=== PATIENT | female | born 1990 | race Caucasian/White ===

== ENCOUNTER 2019-07-13 20:24 | Observation (INO) ==
[2019-07-13 21:11] LABS: Bilirubin,Urine Negative (Negative); Blood,Urine Negative (Negative); Clarity,Urine Cloudy (Clear); Color,Urine Yellow (Yellow); Glucose,Urine (UA) Normal (Normal); Ketones,Urine Negative (Negative); Leukocyte Esterase,Urine Negative (Negative); Nitrite,Urine Negative (Negative); Protein,Urine Negative (Neg-Trace); Specific Gravity,Urine 1.015 (1.010-1.025); Urobilinogen,Urine Normal (Normal)
[2019-07-13 21:12] LABS: Bacteria,Urine None Seen per hpf (None-Few); Hyaline Casts,Urine None Seen per lpf (None-Few); RBC,Urine 0-3 per hpf (0-3); Squamous Epithelial Cell,Urine Many per lpf (None-Few); WBC,Urine 0-3 per hpf (0-3)
[2019-07-13 21:20] LABS: Amphetamine Screen,Urine Negative ng/mL (Cutoff=1000); Barbiturate Screen,Urine Negative ng/mL (Cutoff=200); Benzodiazepines Screen,Urine Negative ng/mL (Cutoff=200); Cannabinoid Screen,Urine Negative ng/mL (Cutoff = 50); Cocaine Screen,Urine Negative ng/mL (Cutoff= 300); Opiate Screen,Urine Negative ng/mL (Cutoff=300); Phencyclidine Screen,Urine Negative ng/mL (Cutoff=25)
--- NOTE | 2019-07-13 22:13 | OB/GYN Progress Note ---
Date of Encounter: 07/13/19 Time of Encounter: 22:11 - Assessment and Plan (1) 36 weeks gestation of Current Visit: No Status: Chronic admitted for observation Subjective - Subjective Principal diagnosis: leaking fluid Interval history: Patient is a 28 y/o @ 36w4d presents to labor and delivery with complaints of leaking fluid. Patient denies VB or regular contractions. She does reports low back and abdominal pain and good movement. Patient does report the leaking started after having intercourse earlier today. Patient denies any urin curt symptoms. Antepartum ROS: loss of fluid, movement normal, no vaginal bleeding Objective - Exam FHR: auscultation normal FHR comments: 125 bpm moderate variability Auscultation: bilateral: normal Abdomen: Present: normal appearance, soft, gravid Cervical dilation: 1.5 Cervix effacement: 70 station: -3 Comments: speculum exam: Small amount of white discharge noted. No blood or pooling noted. Nitrazine and fern Negative - Labs Labs: Abnormal lab results Urine Clarity Cloudy (Clear) A 07/13/19 20:55 Ur Squamous Epith Cells Many per lpf (None-Few) H 07/13/19 20:55
--- NOTE | 2019-07-13 22:38 | Discharge Summary ---
Date of Encounter: 07/13/19 Time of Encounter: 22:37 - Discharge Diagnosis (1) 36 weeks gestation of Priority: Primary Status: Chronic (2) NST (non-stress test) reactive on surveillance Priority: Secondary Status: Acute Comments: FHR 135 bpm moderate variability +15x15 accels no decels noted. Cat. 1 tracing - Discharge Medications Prescriptions: No Action Tizanidine HCl [Zanaflex] 4 mg PO HS Acetaminophen [Tylenol] 325 mg PO Q6HR PRN PRN Reason: Pain Norethindrone-Ethinyl Estrad [Pirmella 7-7-28 Tablet] 1 tab PO DAILY Ibuprofen 800 mg PO TID PRN PRN Reason: Pain Methimazole [Tapazole] 10 mg PO BID OxyCODONE/APAP 5/325 [Percocet 5/325 MG] 1 each PO Q6HR PRN #20 tablet PRN Reason: Pain Bisacodyl [Dulcolax] 5 mg PO DAILY #20 tablet Home Medications: Acetaminophen [Tylenol] 325 mg PO Q6HR PRN 07/17/17 [History] Ibuprofen 800 mg PO TID PRN 07/17/17 [History] Methimazole [Tapazole] 10 mg PO BID 07/17/17 [History] Norethindrone-Ethinyl Estrad [Pirmella 77-28 Tablet] 1 tab PO DAILY 07/17/17 [History] OxyCODONE/APAP 5/325 [Percocet 5/325 MG] 1 each PO Q6HR PRN #20 tablet 07/17/17 [Rx] Tizanidine HCl [Zanaflex] 4 mg PO HS 07/17/17 [History] Bisacodyl [Dulcolax] 5 mg PO DAILY #20 tablet 07/22/17 [Rx] Allergies/Adverse Reactions: Allergy/AdvReac Type Severity Reaction Status Date / Time adhesive tape AdvReac Rash Verified 07/17/17 06:43 Data Procedures and tests throughout hospitalization: Laboratory Tests 07/13/19 07/13/19 20:55 20:55 Urine Color Yellow Urine Clarity Cloudy A Urine pH 7.0 Ur Specific [place] 1.015 Urine Protein Negative Urine Glucose (UA) Normal Urine Ketones Negative Urine Blood Negative Urine Nitrite Negative Urine Bilirubin Negative Urine Urobilinogen Normal Ur Leukocyte Esterase Negative Urine Microscopic RBC 0-3 Urine Microscopic WBC 0-3 Ur Squamous Epith Cells Many H Urine Bacteria None Seen Hyaline Casts None Seen Ur Culture Indicated? NO Urine Opiates Screen Negative Ur Buprenorphine Scrn Negative Ur Barbiturates Screen Negative Ur Phencyclidine Scrn Negative Ur Amphetamines Screen Negative U Benzodiazepines Scrn Negative Urine Cocaine Screen Negative U Marijuana (THC) Screen Negative Ur Drug Screen Interp See Below Labs on day of discharge: Labs from last 24 hours 07/13/19 07/13/19 20:55 20:55 Urine Color Yellow Urine Clarity Cloudy A Urine pH 7.0 Ur Specific [place] 1.015 Urine Protein Negative Urine Glucose (UA) Normal Urine Ketones Negative Urine Blood Negative Urine Nitrite Negative Urine Bilirubin Negative Urine Urobilinogen Normal Ur Leukocyte Esterase Negative Urine Microscopic RBC 0-3 Urine Microscopic WBC 0-3 Ur Squamous Epith Cells Many H Urine Bacteria None Seen Hyaline Casts None Seen Ur Culture Indicated? NO Urine Opiates Screen Negative Ur Buprenorphine Scrn Negative Ur Barbiturates Screen Negative Ur Phencyclidine Scrn Negative Ur Amphetamines Screen Negative U Benzodiazepines Scrn Negative Urine Cocaine Screen Negative U Marijuana (THC) Screen Negative Ur Drug Screen Interp See Below Date of admission: 07/13/19 20:24 Discharging clinician: Agnieszka Rosas Anticipated date of discharge: 07/13/19 - Patient Status Disposition: Home, Self-Care Condition: Good Functional capacity at discharge: independent ambulation - Discharge Instructions Follow Up With: Agnieszka Rosas CNM [Non-Partnered Physician] - - Diet and Activity Activity: increase activity as tolerated Diet: diabetic diet Hospital Course [facility] Time Attestation: Total time spent providing and/or coordinating discharge services: Time Spent: Less than 30 minutes - VTE Reasons for not Prescribing Prophylaxis: Treatment not Indicated - Low risk for VTE
== END 2019-07-13 22:47 | disposition home or self-care (01) ==
LOC: 1NENULAB
PROVIDERS: ADMIT Advanced Practice Midwife; ATTEND Advanced Practice Midwife

== ENCOUNTER 2019-07-29 17:36 | Observation (INO) ==
[2019-07-29] MEDS ORDERED: Ringers Solution, Lactated 1,000 ML ONE (18:13)
[2019-07-29 18:23] LABS: Basophils % 0.3 %; Eosinophils # 0.1 K/mcL (0.0-0.6); Eosinophils % 0.6 %; Hematocrit 36.3 % (35.3-44.9); Hemoglobin 11.6 g/dL (11.5-15.4); Lymphocytes # 1.4 K/mcL (0.6-4.6); Lymphocytes % 14.5 %; Mean Corpuscular Hemoglobin 24.8 pg (28.0-33.3); Mean Corpuscular Volume 77.7 fL (83.0-100.0); Mean Platelet Volume 10.2 fL (9.4-12.4); Monocytes # 0.7 K/mcL (0.0-1.3); Monocytes % 6.9 %; Neutrophils # 7.5 K/mcL (1.6-8.9); Platelet Count 312 K/mcL (140-400); Red Blood Count 4.67 M/mcL (3.82-4.97); Red Cell Distribution Width 15.9 % (11.5-14.5); Segmented Neutrophils % 76.7 %; White Blood Count 9.8 K/mcL (4.3-11.1)
--- NOTE | 2019-07-29 18:45 | OB/GYN History & Physical ---
Date of Encounter: 07/29/19 Time of Encounter: 18:30 Assessment and Plan (1) NST (non-stress test) reactive Current visit: Yes Status: Acute Bpm 110 with moderate variability and 15 x 15 accels, no decelerations category 1 tracing (2) 38 weeks gestation of Current visit: Yes Status: Acute Under the care of Dr. Whelan and the [facility] (3) Prior complicated by PIH, antepartum Current visit: Yes Status: Acute Patient initially had elevated blood pressures upon arrival, and right upper quadrant pain we will order preeclampsia labs and continue to monitor her blood pressure. Given her history, the presentation is somewhat concerning. History of Present Illness Chief complaint: Labor Evaluation HPI: Ms. Capps is a 28 year old female , at 38 weeks, 6 days presenting with contractions, and abdominal pain and the urge to push. Patient endorses movement, and irregular contractions. She denies bloody show, denies fluid gush. She denies a history of UTI or STI during this . She denies alc ohol, tobacco, illicit drugs during this . Previous pregnancies were complicated by preeclampsia. #1, she was diagnosed with preeclampsia and required magnesium, #2 she was diagnosed with PIH. During this , she has been on an aspirin regimen. Patient follows at [facility] with the midwives and Dr. Whelan. GBS negative O+ Hepatitis B nonreactive RPR nonreactive Rubella immune Past Med Surg Social Fam HX - Past Medical History Attestation: Yes The following information was validated with the patient. Medical history: thyroid disease Additional medical history: cardiac arrhythmia,anemia, supervision of other normal , large for gestatioinal age fetus affecting mother,antepartum, third trimester,single gestation, 38 weeks gestation of ,elevated LDL cholesterol level, prediabetes,thyroid nodule,SVT Psychiatric history: no psych history - Past Surgical History Surgical History: cholecystectomy, other Additional surgical history: d&C, cyst removed from head, T&A - Social History Smoking Status: 2nd Hand Smoke Exposure Smokeless Tobacco Status: No Alcohol use: none Drug use: none - Family History Grandmother Living Status: Still Living Hx Family Cardiac Disorders: Yes (MA, high blood pressure) Hx Family Endocrine Disorder: Yes (diabetes) Mother Adopted: No Family Member Ethnicity: Non- Living Status: Still Living Hx Family Cardiac Disorders: Yes (DVT) Hx Family Respiratory Disorders: No Hx Family Cancer: No Hx Family GI Disorders: No Hx Family Genitourinary Disorders: No Hx Family Endocrine Disorder: No Hx Family Musculoskeletal Disorders: No Hx Family Neuromuscular Disorders: No Hx Family Neurologic Disorders: No Hx Family HEENT Disorders: No Hx Family Autoimmune Disorders: No Hx Family Reproductive Disorders: No Hx Family Psychosocial Disorders: No Hx Family Medical Disorders: No Obstetrical History - Pregnancies : 4 Para: 2 Term: 2 : 0 Ab's: 1 Livin - History/Complications History/Complications: Preeclampsia requiring magnesium within 1, induced hypertension in 2 Medications and Allergies Aspirin 81 mg PO DAILY 07/13/19 [History] Levothyroxine 137 mcg PO DAILY 07/13/19 [History] One Tablet 1 / PO DAILY 07/13/19 [History] Allergy/AdvReac Type Severity Reaction Status Date / Time adhesive tape AdvReac Rash Verified 07/17/17 06:43 Review of System OB All systems PM: reviewed and no additional remarkable complaints except as stated - Constitutional Constitutional ROS IM: no fatigue, no fever(s), no malaise - Cardiovascular Cardiovascular: no chest pain, no diaphoresis, no dyspnea - Respiratory Respiratory: no dyspnea, no hemoptysis, no dyspnea on exertion - Gastrointestinal Gastrointestinal: abdominal pain, constipation, nausea, other (Right upper quadrant pain), no cramping, no diarrhea, no fecal incontinence, no vomiting - Genitourinary Genitourinary: pelvic pain, no abnormal vaginal bleeding, no dysuria, no flank pain, no hematuria, no urinary incontinence - Neurological Nerological: no dizziness, no headache(s), no loss of vision, no other visual disturbances - Psychiatric Psychiatric: no anxiety, no depression, no irritability Exam - Constitutional Constitutional: well developed, well nourished, average body habitus, mild distress - HEENT HEENT: EOMI, PERRL, Normocephaly, Mucus Membranes Moist - Neck Neck exam: full ROM, supple - Lungs Respiratory exam: CTAB - Cardiovascular Cardiovascular exam: +S1, +S2, tachycardia - Abdomen Abdomen: Present: gravid Abdomen detail: right upper quadrant: mass, left lower quadrant: mass - Extremities Extremities exam: full ROM, normal inspection - Vagina Vagina: Present: normal moisture - Cervix Dilation: 2 Effacement: 0 Station: -4 - Uterus Uterus exam: Present: normal size - Anus/Rectum Anus/Rectum: Present: normal perianal skin Results Result Diagrams: 07/29/19 17:51 Abnormal lab results MCV 77.7 fL (83.0-100.0) L 07/29/19 17:51 MCH 24.8 pg (28.0-33.3) L 07/29/19 17:51 RDW 15.9 % (11.5-14.5) H 07/29/19 17:51 All other labs normal. - VTE Reasons for not Prescribing Prophylaxis: Treatment not Indicated - Low risk for VTE
[2019-07-29 18:52] LABS: Alanine Aminotransferase 7 Units/L (7-52); Aspartate Amino Transferase 20 Units/L (13-39); BUN/Creatinine Ratio 11 (6-26); Blood Urea Nitrogen 5 mg/dL (6-20); Lactate Dehydrogenase 105 Units/L (140-271); Uric Acid 4.9 mg/dL (2.3-7.6); eGFR For African Americans > 60 (> 60); eGFR For Non-African Americans > 60 (> 60)
[2019-07-29 19:57] LABS: Protein/Creatinine Ratio,Urine 0.19 mg/mg (0.00-0.20)
[2019-07-29] MEDS ORDERED: hydrOXYzine pamoate 25 MG CAPSULE PO PRN (21:37)
--- NOTE | 2019-07-29 21:46 | Discharge Summary ---
Date of Encounter: 07/29/19 Time of Encounter: 21:42 - Discharge Diagnosis (1) 38 weeks gestation of Priority: Primary Status: Acute Comments: Admit to observation for complaint of contractions. (2) False labor after 37 weeks of gestation without delivery Priority: Secondary Status: Acute Comments: No cervical change in 4 hours (3) NST (non-stress test) reactive Priority: Secondary Status: Acute Comments: FHR 120 bpm, moderate variability, +15x15 accels, no decels. (4) Prior complicated by PIH, antepartum Priority: Secondary Status: Acute Comments: Patient presented with some symptoms of pre-eclampsia, epigastric pain, elevated blood pressures. Labs completed and returned normal, PC ratio 0.18. Dr. Lo aware and ok to discharge patient - Discharge Medications Prescriptions: No Action One Tablet 1 / PO DAILY Levothyroxine 137 mcg PO DAILY Aspirin 81 mg PO DAILY Home Medications: Aspirin 81 mg PO DAILY 07/13/19 [History] Levothyroxine 137 mcg PO DAILY 07/13/19 [History] One Tablet 1 / PO DAILY 07/13/19 [History] Allergies/Adverse Reactions: Allergy/AdvReac Type Severity Reaction Status Date / Time adhesive tape AdvReac Rash Verified 07/17/17 06:43 Data Procedures and tests throughout hospitalization: Laboratory Tests 07/29/19 07/29/19 07/29/19 17:51 17:58 19:33 WBC 9.8 RBC 4.67 Hgb 11.6 Hct 36.3 MCV 77.7 L MCH 24.8 L MCHC 32.0 RDW 15.9 H Plt Count 312 MPV 10.2 Immature Gran % 1.0 Seg Neutrophils % 76.7 Lymphocytes % 14.5 Monocytes % 6.9 Eosinophils % 0.6 Basophils % 0.3 Neutrophils # 7.5 Lymphocytes # 1.4 Monocytes # 0.7 Eosinophils # 0.1 Basophils # 0.0 BUN 5 L Creatinine 0.47 L Est GFR ( Amer) > 60 Est GFR (Non-Af Amer) > 60 BUN/Creatinine Ratio 11 Uric Acid 4.9 AST 20 ALT 7 Lactate Dehydrogenase 105 L Urine Creatinine 170 Protein/Creatinin Ratio 0.19 Urine Total Protein 33 H Labs on day of discharge: Labs from last 24 hours 07/29/19 07/29/19 07/29/19 19:33 17:58 17:51 WBC 9.8 RBC 4.67 Hgb 11.6 Hct 36.3 MCV 77.7 L MCH 24.8 L MCHC 32.0 RDW 15.9 H Plt Count 312 MPV 10.2 Immature Gran % 1.0 Seg Neutrophils % 76.7 Lymphocytes % 14.5 Monocytes % 6.9 Eosinophils % 0.6 Basophils % 0.3 Neutrophils # 7.5 Lymphocytes # 1.4 Monocytes # 0.7 Eosinophils # 0.1 Basophils # 0.0 BUN 5 L Creatinine 0.47 L Est GFR ( Amer) > 60 Est GFR (Non-Af Amer) > 60 BUN/Creatinine Ratio 11 Uric Acid 4.9 AST 20 ALT 7 Lactate Dehydrogenase 105 L Urine Creatinine 170 Protein/Creatinin Ratio 0.19 Urine Total Protein 33 H Date of admission: 07/29/19 17:36 Discharging clinician: Mary Meadows Anticipated date of discharge: 07/29/19 - Patient Status Disposition: Home, Self-Care Condition: Good Functional capacity at discharge: independent ambulation Overall status at discharge: patient is progressing back to baseline - Discharge Instructions - Diet and Activity Activity: resume usual activities as tolerated Diet: regular diet Hospital Course [facility] Hospital course: Patient arrived with complaint of contractions and severe pain. On arrival she stated she felt like she needed to push and was visibly shaking with pain. She was found to be 2 cm/thick/high on arrival and no change was noted in 4 hours. She had regular contractions initially but after an IV fluid bolus, the contractions did space out. She complained of epigastric pain initially and several elevated blood pressures were obtained. Cuff was changed to an appropriate size and BP was then normal. Pre-eclampsia labs were drawn and all returned normal and PC ratio was 0.18. She does have a history of pre-eclampsia with previous pregnancies and is on ASA therapy. Labs and assessment were reviewed with Dr. Lo, physician on-call who is comfortable sending patient home given labs, normal BP's now and no cervical change. Patient was offered Vistaril upon discharge and she accepted. She is scheduled for routine visit in 6 days, she was just seen in the office yesterday. Time Attestation: Total time spent providing and/or coordinating discharge services: Time Spent: Less than 30 minutes Exam - Constitutional General appearance IM: A&O X 3, morbidly obese, pleasant, no acute distress, ans wers questions appropriately - Respiratory Respiratory exam: Present: CTAB. Absent: respiratory distress - Cardiovascular Cardiovascular exam IM: Present: RRR, +S1, +S2. Absent: irregular rhythm - GI/Abdominal GI/Abdominal exam IM: normal bowel sounds, soft - Rectal Rectal exam: deferred - External exam: normal external exam - Extremities Exam Extremities exam IM: Present: full ROM, normal capillary refill, normal inspection. Absent: calf tenderness - Neurological Exam Neurological exam: alert, normal gait, oriented X3 - VTE Reasons for not Prescribing Prophylaxis: Treatment not Indicated - Low risk for VTE
== END 2019-07-29 22:03 | disposition home or self-care (01) ==
LOC: INTOOBSV 17:36 → 1NENULAB 17:36
PROVIDERS: ADMIT Registered Nurse; ATTEND Registered Nurse